=== PATIENT | female | born 1980 | race Two or more races ===

== ENCOUNTER 2018-10-23 10:25 | Emergency (ER) | payer SELFPAY ==
[~2018-10-23] VITALS: Ht 167.6 cm; Wt 88.5 kg
[2018-10-23 10:33] VITALS: BP 138/79
[2018-10-23] MEDS ORDERED: FLUORESCEIN SODIUM OPHTH 1 EA STRIP ONE (10:39)
[2018-10-23] MEDS ORDERED: clonazePAM 1 MG TABLET ONE (10:52)
[2018-10-23] MEDS ORDERED: clonazePAM 1 MG TABLET PO ONE (11:00)
--- NOTE | 2018-10-23 11:15 | NUR ---
Patient discharged to home in stable condition. Written and verbal after care instructions given. Patient verbalizes understanding of instruction.
== END 2018-10-23 11:14 | disposition home or self-care (01) ==
LOC: ER 10:27
DX: H11.31 Conjunctival hemorrhage, right eye (principal); F41.9 Anxiety disorder, unspecified; F19.10 Other psychoactive substance abuse, uncomplicated; G47.419 Narcolepsy without cataplexy